=== PATIENT | male | born 1955 | race Caucasian/White ===

== ENCOUNTER → 2020-10-03 | Day surgery (SDC) | payer OTHER, MEDICARE ==
[2020-09-30 11:46] LABS: BASOPHILS % 0.4 % (0.0-1.0); EOSINOPHILS # (AUTO) 0.3 (0.0-0.4); EOSINOPHILS % 4.5 % (0.0-6.0); HEMATOCRIT 42.4 % (38.2-49.6); HEMOGLOBIN 13.8 g/dL (14.0-18.0); LYMPHOCYTES # (AUTO) 1.7 (1.0-3.2); LYMPHOCYTES % 24.6 % (18.0-39.1); MEAN CORPUSCULAR HEMOGLOBIN 29.2 pg (28-32); MEAN CORPUSCULAR HGB CONC 32.5 g/dL (31-35); MEAN CORPUSCULAR VOLUME 89.8 fL (81-99); MONOCYTES # (AUTO) 0.8 (0.2-0.8); MONOCYTES % 11.4 % (4.4-11.3); NEUTROPHILS % 58.8 % (38.7-80.0); PLATELET COUNT 229 x10e3/uL (140-360); RED BLOOD COUNT 4.72 x10e6/uL (4.3-5.7); RED CELL DISTRIBUTION WIDTH 12.9 % (11.7-14.4)
[2020-09-30 11:59] LABS: ANION GAP 12.4 mmol/L (8-16); CREATININE, SERUM 1.23 mg/dL (0.72-1.25); POTASSIUM 4.4 mmol/L (3.5-5.1)
--- NOTE | 2020-09-30 12:54 | Diagnostic Imaging Report ---
EXAM: CHEST 2 VIEWS DATE: 09/30/2020 12:00 PM INDICATION: Preoperative evaluation COMPARISON: None FINDINGS: The trachea is midline. The lungs are symmetrically expanded without evidence for large focal consolidation, pneumothorax, or significant pleural effusion. The cardiomediastinal silhouette and pulmonary vasculature are within normal limits. Mild atherosclerotic calcifications noted within the aortic arch. No acute osseous abnormality is identified. The surrounding soft tissues are unremarkable. IMPRESSION: No acute cardiopulmonary process identified. Signed by: Dr. Avelino Ramirez MD on 09/30/2020 12:51 PM
[~2020-10-03] MED LIST: AMLODIPINE BESYL5 MG PO; B&O 60MG R/S 60 MG SUPP PR ONE; CEFTRIAXONE SOD 1 GM/NS 50 ML 50 ML IV ONE; CENTRUM ADULTS1 EACH PO; COLESTIPOL HCL1 GM PO; CYMBALTA30 MG PO; DEXAMETHASONE SOD PHOS INJ 4 MG/ML VIAL ONE; DILAUDID2 MG INFIL; ECOTRIN81 MG PO; FLOMAX0.4 MG PO; GLYCOPYRROLATE INJ 0.2 MG/ML VIAL ONE; HYDROCHLOROTHIA25 MG PO; IOPAMIDOL 300MG/ML 50ML INFUS..BTL IV ONE; LIDOCAINE HCL 2% LOCAL INJ 5 ML SDV VIAL INJ ONE; METOPROLOL SUCC25 MG PO; MICARDIS80 MG PO; MIDAZOLAM HCL 2 MG/2 ML VIAL ONE; NEXIUM20 MG PO; ONDANSETRON HCL INJ 2MG/ML 2ML 2 MG/ML VIAL ONE; OXYCODONE HCL20 M1 PO; PROPOFOL IV EMULSION 10 MG/ML 20 ML VIAL ONE; SEVOFLURANE INHAL SOLN 250 ML PEN BTL ONE; TESTOSTERO200 MG/1 M IM; TRAZODONE HCL50 MG PO
[2020-10-03 16:14] VITALS: BP 107/56
--- NOTE | 2020-10-03 16:52 | Diagnostic Imaging Report ---
OR Fluoroscopy: IMPRESSION: Fluoroscopy service provided in the OR. Interpretation not requested. Signed by: Talib Britton MD on 10/03/2020 4:48 PM
--- NOTE | 2020-10-04 20:33 | Operative Report ---
DATE OF PROCEDURE: 10/03/2020 SURGEON: Zack Garner MD PREOPERATIVE DIAGNOSIS: Urinary tract infection. POSTOPERATIVE DIAGNOSES: 1. Urinary tract infection. 2. Obstructive BPH. 3. History of bladder cancer. 4. Laterally displaced ureteral orifices. 5. Very high median bar. 6. Intraprostatic calcifications consistent with chronic prostatitis. OPERATION PERFORMED: 1. Cystourethroscopy with bilateral ureteral catheterization and retrograde ureteropyelography. 2. Interpretation of retrograde pyelography, no radiologist present. 3. Supervision of fluoroscopy, no radiologist present. ANESTHESIA: General. COMPLICATIONS: None. CLINICAL SUMMARY: Moises Levy is a 65-year-old man with a history of bladder cancer diagnosed approximately in 2011. He has not had any recent surveillance. He has obstructive BPH symptomatology and UroLift has been discussed. He is aware of the risks of bleeding, infection, injury to adjacent structures, need for additional procedures and elected to proceed. PROCEDURE IN DETAIL: Informed consent was verified. Moises Levy was properly identified and taken to the operating room, placed on the cystoscopy table in supine position. Anesthesia was uneventfully begun. The patient was then carefully gently repositioned in a dorsal lithotomy position with all pressure points well padded. His genitalia were prepared and draped in usual sterile fashion. The cystoscope sheath with the visual obturator in place was atraumatically inserted in the patient's urethra, was guided down the unremarkable urethra through the normal sphincteric region in the patient's prostate bed, which exhibited stones embedded within the parenchyma of the prostate. The patient had visually obstructing BPH and an extremely elevated median bar. This required fairly significant torque of the cystoscope in order to go over this median bar and into the patient's bladder, which exhibited grade 2-3 trabeculations with early cellule formation. There were no suspicious lesions. There were no stones. There was no evidence of recurrent bladder cancer. Both ureteral orifices seemed to be laterally displaced in this particular patient. An 8-[place] catheter was used to cannulate each ureter and retrograde ureteral pyelograms were performed. INTERPRETATION OF RETROGRADE URETEROPYELOGRAPHY: Contrast was instilled in retrograde fashion bilaterally. There was significant J hooking noted bilaterally, but there were no tumors, no stones, no diverticula. Unobstructed drainage was observed bilaterally fluoroscopically. Bifid collecting systems were present bilaterally. The patient's bladder was drained and cystoscope was withdrawn. Belladonna and Opium suppository were placed revealing at least 35-40 g prostate that is smooth, non-fluctuant without any nodules. Due to the patient's body habitus the patient's prostate is extremely deep and I could not reach the base of the patient's prostate even under general anesthesia. What I palpated exhibited no nodules. The patient was uneventfully reversed from anesthesia and taken to recovery room in stable condition with no complications to the procedure. He tolerated procedure well. Plans will be to follow the patient up in the office in approximately a month for uroflowmetry and bladder ultrasonography. The patient would not be a good UroLift candidate through the severely elevated median bar causing obstruction of the bladder neck. A transurethral incision of the prostate would be an option in this particular patient, one alternative could be definitive transurethral resection of the prostate. We will discuss these options with the patient in the office. MD INGRID Tamez/PILLO /[id number]
== END | disposition home or self-care (01) ==
LOC: OR 13:01
PROVIDERS: ATTEND Urology
DX: N39.0 Urinary tract infection, site not specified (principal); Z85.51 Personal history of malignant neoplasm of bladder; Q62.62 Displacement of ureter; N42.89 Other specified disorders of prostate; N32.89 Other specified disorders of bladder; N40.1 Benign prostatic hyperplasia with lower urinary tract symptoms; N13.8 Other obstructive and reflux uropathy; E29.1 Testicular hypofunction; R35.1 Nocturia; N50.0 Atrophy of testis; G47.33 Obstructive sleep apnea (adult) (pediatric); I10 Essential (primary) hypertension; Z88.3 Allergy status to other anti-infective agents; Z01.810 Encounter for preprocedural cardiovascular examination; Z01.812 Encounter for preprocedural laboratory examination; Z01.818 Encounter for other preprocedural examination; Z20.828 Contact with and (suspected) exposure to other viral communicable diseases; Z79.82 Long term (current) use of aspirin; Z79.899 Other long term (current) drug therapy; Z86.19 Personal history of other infectious and parasitic diseases; Z87.891 Personal history of nicotine dependence
CPT/HCPCS: 36415; 52005; 71046; 74420; 80048; 85025; 93005; J0696; J1100; J2001; J2250; J2405; J2704; Q9967; U0002